=== PATIENT | female | born 1990 | race Caucasian/White ===

== ENCOUNTER 2020-10-02 17:57 | Emergency (ER) | payer MEDICAID ==
[~2020-10-02] VITALS: Ht 162.6 cm; Wt 92.0 kg
[2020-10-02] MEDS ORDERED: PENICILLIN G BENZATHINE 1,200,000 UNITS/2ML SYR IM ONE (19:15)
[2020-10-02 20:50] VITALS: BP 120/77
== END 2020-10-02 20:50 | disposition home or self-care (01) ==
LOC: ER 17:57
DX: J02.0 Streptococcal pharyngitis (principal); Z88.6 Allergy status to analgesic agent; Z90.49 Acquired absence of other specified parts of digestive tract
CPT/HCPCS: 96372; 99283; J0561

== ENCOUNTER 2022-02-15 14:06 | Emergency (ER) | payer OTHER ==
[~2022-02-15] VITALS: Ht 162.6 cm; Wt 130.4 kg
[~2022-02-15 14:06] MED LIST: IBUP-2030 PO
[2022-02-15] MEDS ORDERED: IBUPROFEN 600MG TABLET PO ONE (16:30)
[2022-02-15] MEDS ORDERED: ONDANSETRON 4MG ODT PO ONE (16:30)
[2022-02-15] MEDS ORDERED: ONDA4TAB50 MT (16:43)
[2022-02-15] MEDS ORDERED: IBUP-2029 MT (16:43)
[2022-02-15 16:54] VITALS: BP 138/96
== END 2022-02-15 17:07 | disposition home or self-care (01) ==
LOC: ER 14:06
DX: B34.9 Viral infection, unspecified (principal); Z88.6 Allergy status to analgesic agent; Z98.890 Other specified postprocedural states
CPT/HCPCS: 99283; Q0162